=== PATIENT | female | born 1990 | race Caucasian/White ===

== ENCOUNTER 2017-09-18 17:03 | Emergency (ER) | payer SELFPAY ==
--- NOTE | 2017-09-18 17:31 | ER Document Report ---
ED General - General Chief Complaint: Toothache Stated Complaint: TOOTH PAIN Time Seen by Provider: 09/18/17 17:30 Mode of Arrival: Ambulatory Information source: Patient Notes: Patient is a 27 year old female who presents with right upper jaw pain associated with toothache. She states she has been to see dentist but they do not have an appointment until next week. Denies any fever, chills, facial swelling, difficulty breathing, difficulty swallowing. She has tried multiple [id number] pain medications with no relief. TRAVEL OUTSIDE OF THE [place] IN LAST 30 DAYS: No - Related Data Allergies/Adverse Reactions: No Known Allergies Allergy (Verified 09/18/17 17:03) Past Medical History - General Information source: Patient - Social History Smoking Status: Current Every Day Smoker Family History: Reviewed & Not Pertinent - Immunizations Hx Diphtheria, Pertussis, Tetanus Vaccination: Yes Review of Systems - Review of Systems Constitutional: See HPI EENT: See HPI Cardiovascular: No symptoms reported Respiratory: No symptoms reported Gastrointestinal: No symptoms reported Genitourinary: No symptoms reported Female Genitourinary: No symptoms reported Musculoskeletal: No symptoms reported Skin: No symptoms reported Hematologic/Lymphatic: No symptoms reported Neurological/Psychological: No symptoms reported Physical Exam - Vital signs Vitals: Temp Pulse Resp BP Pulse Ox 98.9 F 84 20 108/66 99 09/18/17 17:11 09/18/17 17:11 09/18/17 17:11 09/18/17 17:11 09/18/17 17:11 - Notes Notes: PHYSICAL EXAM: CONSTITUTIONAL: Alert and oriented, well-appearing and in no acute distress. Speaking in full sentences without difficulty. HENT: Normocephalic, atraumatic. Oropharynx clear without erythema, tonsilar exudate or malocclusion. Trachea midline. Uvula midline. Moist mucous membranes. Edentulous to #1 and 2, dental caries noted to tooth #3. No area of fluctuation, induration or point of access for dental abscess. EYES: Pupils equal round and reactive to light, EOM intact. Sclera anicteric, conjunctiva are normal. No entrapment. NECK: supple without lymphadenopathy. No midline tenderness or paraspinous muscle spasms. ROM intact. HEART: Regular rate and rhythm without murmurs. LUNGS: CTAB and equal. No wheezes, rales or rhonchi. EXTREMITIES: Normal range of motion, no pitting edema. No cyanosis. Cap Refill < 3 seconds. NEURO: Cranial nerves grossly intact. Normal sensory/motor exams. PSYCH: Normal mood, normal affect. SKIN: Warm and dry. Normal turgor. No rashes or lesions noted. Course - Re-evaluation Re-evalutation: 09/18/17 18:01 Patient seen and examined. Patient is able to speak in full sentences without difficulty, nontoxic in appearance. She is afebrile and not tachycardic. She has no evidence of facial cellulitis or dental abscess. Will treat with empiric antibiotics and pain medicine for dental caries. Advised to follow-up with dentist. At this time low suspicion for any emergent conditions at this time. At this time, will discharge with return precautions and follow-up recommendations. Verbal discharge instructions given at the bedside and opportunity for questions given. Medication warnings reviewed. Patient is in agreement with this plan and has verbalized understanding of return precautions and the need for primary care follow-up in the next 24-72 hours. - Vital Signs Vital signs: Temp Pulse Resp BP Pulse Ox 98.9 F 84 20 108/66 99 09/18/17 17:11 09/18/17 17:11 09/18/17 17:11 09/18/17 17:11 09/18/17 17:11 Discharge - Discharge Clinical Impression: Pain, dental Condition: Stable Disposition: HOME, SELF-CARE Additional Instructions: TOOTHACHE: Your pain is due to dental decay. The tooth must be repaired in order for you to feel better. You will, therefore, be referred to a dentist. We do not have dentists on the staff at [facility]. Severe swelling or drainage around a tooth usually means a dental abscess. This also requires evaluation and treatment by the dentist, but antibiotics may be prescribed while awaiting dental treatment. You should be rechecked immediately if you develop major swelling of the face, increasing pain, a lump in the jaw or gums, headache, difficulty swallowing, or fever. ORAL NARCOTIC MEDICATION: You have been given a prescription for pain control. This medication is a narcotic. It's best taken with food, as nausea can result if taken on an empty stomach. Don't operate machinery or drive within six hours of taking this medication. Do not combine this medicine with alcohol, or with any medication which can cause sedation (such as cold tablets or sleeping pills) unless you get permission from the physician. Narcotics tend to cause constipation. If possible, drink plenty of fluids and eat a diet high in fiber and fruits. Please be aware that prescription narcotics also have the potential for abuse. People become addicted to these medications because of the general sense of wellbeing that they induce. This feeling along with a significant reduction in tension, anxiety, and aggression provides a stimulating seductive quality to these drugs. Once your pain is under control, we encourage you to discard your unused narcotics. PENICILLIN V K: You have been given a prescription for Penicillin VK. Your physician has determined that this is the best antibiotic for your condition. Pen VK can be taken with meals, however more of the antibiotic gets into the bloodstream if it's taken on an empty stomach. Penicillin usually has no side effects. However, allergy to penicillins is common. If you have had an allergic reaction to any drug of the penicillin family, you should never take any other penicillin. Notify your doctor at once if you develop hives, itching, swelling, faintness, or shortness of breath. FOLLOW-UP CARE: You have been referred for follow-up care to the dentists listed below. Call the dentists office for an appointment as you were instructed or within the next two days. If you experience worsening or a significant change in your symptoms, notify the physician immediately or return to the Emergency Department at any time for re-evaluation. [facility] [address] [place], [place] Friday mornings, by appointment [facility] [address] [place] [address] [facility] [address] [facility]. [facility] [address] [facility]. [place] [address] [facility]. [email or web address] [address] [place] [address] Friday- 8:00am to 5:00 pm Will see patients from other [facility]. Charges based on income and family size and accepts Medicare, Medicaid, and Insurances Will pull molars [facility] [address] [address] Hours of Operation 8:00 am - 4:30 pm weekdays The following dental offices accept Medicaid: [facility] Dr. Moore Dr. Talley Dr. Delgadillo Dr. Clark Marco Anthony, Melissa, and Jennifer oral surgery Dr. Wynne ([place]) Dr. Payan ([place]) [facility] Drs. Mtz ([place]) Dr. Brown ([place]) [facility] Dr. Wilder ([place]) Drs. Rascon and ([place]) Medicaid Care Line Prescriptions: Hydrocodone/Acetaminophen [Vicodin 5-300 mg Tablet] 1 tab PO ASDIR PRN #15 tab PRN Reason: Penicillin V Potassium [Penicillin Vk 500 mg Tablet] 500 mg PO BID #20 tablet Forms: Return to Work
[2017-09-18] MEDS ORDERED: KETOROLAC TROMETHAMINE 60 MG/2 ML SDV IM ONE (17:59)
[2017-09-18] MEDS ORDERED: HYDROCODONE/ACETAMINOPHEN 5-325 MG TABLET PO ONE (18:43)
[2017-09-18 18:56] VITALS: BP 120/69
== END 2017-09-18 18:55 | disposition home or self-care (01) ==
LOC: ER 17:03 → EDBD 17:03 → ER 18:55
DX: K02.9 Dental caries, unspecified (principal); K08.89 Other specified disorders of teeth and supporting structures; F17.200 Nicotine dependence, unspecified, uncomplicated
CPT/HCPCS: 99282

== ENCOUNTER 2017-12-01 18:35 | Emergency (ER) | payer SELFPAY ==
[2017-12-01] MEDS ORDERED: ONDANSETRON 4 MG TAB.RAPDIS PO ONE (19:47)
[2017-12-01] MEDS ORDERED: ACETAMINOPHEN 325 MG TABLET PO ONE (19:47)
--- NOTE | 2017-12-01 19:49 | ER Document Report ---
ED Medical Screen (RME) - General Chief Complaint: Headache Stated Complaint: HEADACHE Time Seen by Provider: 12/01/17 19:46 Mode of Arrival: Ambulatory Information source: Patient Notes: Patient presents complaining of chest pain, headache, tingling in legs and feet , with nausea and blurred vision. Patient states headache pain is been off and on for the past 2 days. Patient describes chest discomfort as a dull ache. Patient denies any cough. Patient denies any recent immobilization or travel. hx: None I have greeted and performed a rapid initial assessment of this patient. A comprehensive ED assessment and evaluation of the patient, analysis of test results and completion of the medical decision making process will be conducted by additional ED providers. TRAVEL OUTSIDE OF THE [place] IN LAST 30 DAYS: No - Related Data Allergies/Adverse Reactions: No Known Allergies Allergy (Verified 12/01/17 18:36) Past Medical History - Social History Chew tobacco use (# tins/day): No Frequency of alcohol use: None Drug Abuse: None Renal/ Medical History: Denies: Hx Peritoneal Dialysis - Immunizations Hx Diphtheria, Pertussis, Tetanus Vaccination: Yes Physical Exam - Vital signs Vitals: Temp Pulse Resp BP Pulse Ox 99.1 F 84 16 106/62 98 12/01/17 18:39 12/01/17 18:39 12/01/17 18:39 12/01/17 18:39 12/01/17 18:39 - Respiratory Respiratory status: No respiratory distress Chest status: Tender Breath sounds: Normal. No: Rales, Rhonchi, Stridor, Wheezing Chest palpation: Tender Course - Vital Signs Vital signs: Temp Pulse Resp BP Pulse Ox 99.1 F 84 16 106/62 98 12/01/17 18:39 12/01/17 18:39 12/01/17 18:39 12/01/17 18:39 12/01/17 18:39
--- NOTE | 2017-12-01 20:17 | RADIOLOGY REPORT (SQ) ---
EXAM DESCRIPTION: CHEST PA/LAT COMPLETED DATE/TIME: 12/01/2017 8:09 pm REASON FOR STUDY: cp COMPARISON: None. EXAM PARAMETERS: NUMBER OF VIEWS: two views TECHNIQUE: Digital Frontal and Lateral radiographic views of the chest acquired. RADIATION DOSE: NA LIMITATIONS: none FINDINGS: LUNGS AND PLEURA: No opacities, masses or pneumothorax. No pleural effusion. MEDIASTINUM AND HILAR STRUCTURES: No masses or contour abnormalities. HEART AND VASCULAR STRUCTURES: Heart normal size. No evidence for failure. BONES: No acute findings. HARDWARE: None in the chest. OTHER: No other significant finding. IMPRESSION: NO SIGNIFICANT RADIOGRAPHIC FINDING IN THE CHEST. TECHNICAL DOCUMENTATION: JOB ID: [id number] [employer]- All Rights Reserved Reading location - IP/workstation name: [email or web address]
[2017-12-01 20:21] LABS: ABSOLUTE EOSINOPHILS # (AUTO) 0.2 10^3/uL (0.0-0.6); ABSOLUTE LYMPHOCYTES (AUTO) 2.9 10^3/uL (0.5-4.7); ABSOLUTE MONOCYTES (AUTO) 0.5 10^3/uL (0.1-1.4); ABSOLUTE NEUT (AUTO) 3.9 10^3/uL (1.7-8.2); BASOPHILS % (AUTO) 0.5 % (0-2); EOSINOPHILS % (AUTO) 3.2 % (0-6); HEMATOCRIT 38.5 % (36.0-47.0); HEMOGLOBIN 12.3 g/dL (12.0-15.5); LYMPHOCYTES % (AUTO) 37.7 % (13-45); MEAN CORPUSCULAR HEMOGLOBIN 25.2 pg (27.0-33.4); MEAN CORPUSCULAR HGB CONC 32.1 g/dL (32.0-36.0); MEAN CORPUSCULAR VOLUME 79 fl (80-97); MONOCYTES % (AUTO) 7.2 % (3-13); PLATELET COUNT 228 10^3/uL (150-450); RED BLOOD COUNT 4.89 10^6/uL (3.72-5.28); RED CELL DISTRIBUTION WIDTH 14.3 % (11.5-14.0); SEGMENTED NEUTROPHILS % (AUTO) 51.4 % (42-78); TOTAL CELLS COUNTED % (AUTO) 100 %; WHITE BLOOD COUNT 7.6 10^3/uL (4.0-10.5)
[2017-12-01] MEDS ORDERED: HALOPERIDOL LACTATE INJ 5 MG/1 ML VIAL IV ONE (20:26)
[2017-12-01] MEDS ORDERED: NORMAL SALINE 1000 ML 1,000 ML IV ONE (20:26)
[2017-12-01] MEDS ORDERED: KETOROLAC TROMETHAMINE INJ/PF 30 MG/1 ML SDV IV ONE (20:26)
--- NOTE | 2017-12-01 20:47 | ER Document Report ---
ED General - General Chief Complaint: Headache Stated Complaint: HEADACHE Time Seen by Provider: 12/01/17 19:46 Mode of Arrival: Ambulatory Notes: Patient is a 27-year-old female without past medical history who presents with multiple complaints including headache, body aches, fatigue, intermittent weakness and numbness, and exhaustion. The symptoms have been gradually worsening over the last several weeks. Nothing seems to improve or worsen her symptoms. Patient admits to a large amount of stress in her life due to her recent move, multiple children in the home, and working multiple jobs. She admits to sleeping only 3-4 hours nightly for at least the past 3-4 weeks. She has not seen her primary doctor regarding today's concerns. At time of my assessment she denies any focal weakness, numbness, fever, headache, or any other symptoms that are of concern to her. TRAVEL OUTSIDE OF THE [place] IN LAST 30 DAYS: No - Related Data Allergies/Adverse Reactions: No Known Allergies Allergy (Verified 12/01/17 18:36) Past Medical History - General Information source: Patient - Social History Smoking Status: Never Smoker Chew tobacco use (# tins/day): No Frequency of alcohol use: None Drug Abuse: None Lives with: Parents Family History: Reviewed & Not Pertinent Patient has suicidal ideation: No Patient has homicidal ideation: No Renal/ Medical History: Denies: Hx Peritoneal Dialysis - Immunizations Hx Diphtheria, Pertussis, Tetanus Vaccination: Yes Review of Systems - Review of Systems Notes: Constitutional: Positive fatigue HENT: Negative for sore throat. Eyes: Negative for visual changes. Cardiovascular: Negative for chest pain. Respiratory: Negative for shortness of breath. Gastrointestinal: Negative for abdominal pain, vomiting or diarrhea. Genitourinary: Negative for dysuria. Musculoskeletal: Negative for back pain. Skin: Negative for rash. Neurological: Positive for headache 10 point ROS negative except as marked above and in HPI. Physical Exam - Vital signs Vitals: Temp Pulse Resp BP Pulse Ox 99.1 F 84 16 106/62 98 12/01/17 18:39 12/01/17 18:39 12/01/17 18:39 12/01/17 18:39 12/01/17 18:39 Interpretation: Normal Notes: PHYSICAL EXAMINATION: GENERAL: Well-appearing, well-nourished and in no acute distress. HEAD: Atraumatic, normocephalic. EYES: Pupils equal round and reactive to light, extraocular movements intact, sclera anicteric, conjunctiva are normal. ENT: nares patent, oropharynx clear without exudates. Moist mucous membranes. NECK: Normal range of motion, supple without lymphadenopathy LUNGS: Breath sounds clear to auscultation bilaterally and equal. No wheezes rales or rhonchi. HEART: Regular rate and rhythm without murmurs ABDOMEN: Soft, nontender, normoactive bowel sounds. No guarding, no rebound. No masses appreciated. EXTREMITIES: Normal range of motion, no pitting or edema. No cyanosis. NEUROLOGICAL: No focal neurological deficits. Moves all extremities spontaneously and on command. PSYCH: Normal mood, normal affect. SKIN: Warm, Dry, normal turgor, no rashes or lesions noted. Course - Re-evaluation Re-evalutation: 12/01/17 20:46 Patient presents with multiple vague complaints that did not appear to be concerning for any acute life-threatening pathology. Vitals are within normal limits at triage and at time of discharge. Physical examination is unremarkable. Patient has tolerated oral intake without difficulty. Patient was not noted to be in distress at any point during their ER visit. At this time, based on the reassuring evaluation, I do not suspect an acute AK, pulmonary embolus, aortic dissection, acute intra-abdominal pathology, stroke, or sepsis.Will discharge with return precautions and follow-up recommendations. Vision seems to likely be under a large amount of emotional distress and significant life stressors. She admits that she is only sleeping 2-3 hours a night for at least the past 3-4 weeks, mother notes that she fell asleep on the phone earlier today. I provided the patient with a work note to take a mental health break for the next 1-2 days. Verbal discharge instructions given a the bedside and opportunity for questions given. Medication warnings reviewed. Patient is in agreement with this plan and has verbalized understanding of return precautions and the need for primary care follow-up in the next 24-72 hours. - Vital Signs Vital signs: Temp Pulse Resp BP Pulse Ox 98.8 F 66 18 116/63 100 12/01/17 21:02 12/01/17 21:02 12/01/17 21:02 12/01/17 21:02 12/01/17 21:02 - Laboratory Result Diagrams: 12/01/17 20:00 12/01/17 20:00 Laboratory results interpreted by me: 12/01/17 12/01/17 20:00 20:00 MCV 79 L MCH 25.2 L RDW 14.3 H Chloride 110 H Discharge - Discharge Clinical Impression: Stress, Physical exhaustion Headache Qualifiers: Headache type: unspecified Headache chronicity pattern: acute headache Intractability: not intractable Qualified Code(s): R51 - Headache Condition: Good Disposition: HOME, SELF-CARE Additional Instructions: Take the next 2 days off. Reduce any electronic stimulation, sleep as much as you can, keep yourself hydrated and eat good meals. Follow-up with general doctor. Please return to the emergency room immediately if you experience any concerning symptoms including high fevers, severe headache, chest pain, difficulty breathing, abdominal pain, slurred speech, numbness or weakness in your arms or legs, or any other symptom that concerns you. Forms: Return to Work
[2017-12-01 20:49] LABS: ALANINE AMINOTRANSFERASE 18 U/L (9-52); ALBUMIN 3.8 g/dL (3.5-5.0); ALKALINE PHOSPHATASE 60 U/L (38-126); ANION GAP 7 (5-19); ASPARTATE AMINO TRANSFERASE 15 U/L (14-36); BILIRUBIN,DIRECT 0.4 mg/dL (0.0-0.4); BILIRUBIN,TOTAL 0.4 mg/dL (0.2-1.3); BLOOD UREA NITROGEN 14 mg/dL (7-20); CALCIUM 9.4 mg/dL (8.4-10.2); CARBON DIOXIDE 26 mmol/L (22-30); CHLORIDE 110 mmol/L (98-107); GLUCOSE 83 mg/dL (75-110); POTASSIUM 4.1 mmol/L (3.6-5.0); SODIUM 142.8 mmol/L (137-145); TOTAL PROTEIN 6.7 g/dL (6.3-8.2)
[2017-12-01 21:03] VITALS: BP 116/63
--- NOTE | 2017-12-02 08:02 | EKG REPORT ---
SEVERITY:- NORMAL ECG - SINUS RHYTHM : Confirmed by: Alonzo Doyle MD 02-Dec-2017 08:01:22
== END 2017-12-01 21:04 | disposition home or self-care (01) ==
LOC: ER 18:35
DX: F43.9 Reaction to severe stress, unspecified (principal); R53.83 Other fatigue; R51 Headache; M79.1 Myalgia
CPT/HCPCS: 36415; 71046; 80053; 84703; 85025; 93005; 93010; 99285

== ENCOUNTER 2018-02-05 01:38 | Emergency (ER) | payer SELFPAY ==
[2018-02-05 02:20] LABS: APPEARANCE,URINE SLIGHTLY-CLOUDY; BILIRUBIN,URINE NEGATIVE (NEGATIVE); COLOR,URINE YELLOW; GLUCOSE, URINE NEGATIVE (NEGATIVE); KETONES,URINE TRACE mg/dL (NEGATIVE); LEUKOCYTE ESTERASE,URINE NEGATIVE (NEGATIVE); NITRITE,URINE NEGATIVE (NEGATIVE); PROTEIN,URINE NEGATIVE (NEGATIVE); URINE SPECIFIC GRAVITY 1.039
[2018-02-05 04:19] LABS: RBCS (WET MOUNT) NO RBCS SEEN; T.VAGINALIS (WET MOUNT) NO TRICHOMONAS SEEN; WBCS (WET MOUNT) RARE WBCS SEEN; YEAST (WET MOUNT) NO YEAST SEEN
[2018-02-05] MEDS ORDERED: AZITHROMYCIN 250 MG TABLET PO ONE (04:39)
[2018-02-05] MEDS ORDERED: DOXYCYCLINE HYCLATE 100 MG TABLET PO ONE (04:39)
[2018-02-05] MEDS ORDERED: LIDOCAINE 1% INJ-PF (10 MG/ML) 30 ML SDV INJ ONE (04:39)
[2018-02-05] MEDS ORDERED: CEFTRIAXONE INJ 250 MG VIAL IM ONE (04:39)
[2018-02-05] MEDS ORDERED: IBUPROFEN 800 MG TABLET PO ONE (04:42)
--- NOTE | 2018-02-05 04:42 | ER Document Report ---
ED General - General Chief Complaint: Pelvic Pain Stated Complaint: LOWER ABDOMINAL PAIN Time Seen by Provider: 02/05/18 03:42 Notes: Patient is a 27-year-old female presents emergency department the chief complaint of suprapubic/pelvic pain on and off for the past month. Patient states that she is concerned she has a sexually transmitted disease. Patient states that she was sexually active about a month ago with her last partner who was cheating on her. She admits to pain with intercourse at that time. She admits that her vaginal discharge has not been any different but she also has not been paying close attention. She denies any fevers or chills, pyuria, hematuria, any pain radiating into her back any nausea or vomiting or abdominal pain. Patient states that she has not been taking much uqda-rtf-swdebwr for her symptoms. She states that she does have an IUD in place otherwise healthy female States her last period was about 2 weeks ago TRAVEL OUTSIDE OF THE [place] IN LAST 30 DAYS: No - Related Data Allergies/Adverse Reactions: No Known Allergies Allergy (Verified 12/01/17 18:36) Past Medical History - Social History Smoking Status: Unknown if Ever Smoked Family History: Reviewed & Not Pertinent Patient has suicidal ideation: No Patient has homicidal ideation: No Renal/ Medical History: Denies: Hx Peritoneal Dialysis - Immunizations Hx Diphtheria, Pertussis, Tetanus Vaccination: Yes Review of Systems - Review of Systems Constitutional: No symptoms reported EENT: No symptoms reported Cardiovascular: No symptoms reported Respiratory: No symptoms reported Gastrointestinal: See HPI Genitourinary: See HPI Female Genitourinary: See HPI Musculoskeletal: No symptoms reported -: Yes All other systems reviewed and negative Physical Exam - Vital signs Vitals: Temp Pulse Resp BP Pulse Ox 98.7 F 76 18 114/59 L 99 02/05/18 02:03 02/05/18 02:03 02/05/18 02:03 02/05/18 02:03 02/05/18 02:03 - Notes Notes: PHYSICAL EXAM GENERAL: Alert, interacts well. HEAD: Normocephalic, atraumatic. EYES: Pupils equal, round, and reactive to light. Extraocular movements intact. ENT: Oral mucosa moist, tongue midline. NECK: Full range of motion. Supple. Trachea midline. LUNGS: Clear to auscultation bilaterally, no wheezes, rales, or rhonchi. No respiratory distress. HEART: Regular rate and rhythm. No murmurs, gallops, or rubs. ABDOMEN: Soft, nondistended, nontender. No guarding, rebound, or rigidity.. Bowel sounds present in all 4 quadrants. FEMALE : Normal external exam. No evidence of lesions, lacerations, bruising or vesicles. Speculum exam normal cervix closed. IUD strings intact with evidence of yellow vaginal discharge with out odor. No evidence of lesions. No vaginal bleeding. Bimanual exam normal no cervical motion tenderness. No adnexal mass or adnexal tenderness. EXTREMITIES: Moves all 4 extremities spontaneously. No edema, radial and dorsalis pedis pulses 2/4 bilaterally. No cyanosis. NEUROLOGICAL: Alert and oriented x4. Normal speech. PSYCH: Normal affect, normal mood. SKIN: Warm, dry, normal turgor. No rashes or lesions noted. Course - Re-evaluation Re-evalutation: 02/05/18 04:38 Patient is a 27-year-old female hemodynamic stable, no acute distress afebrile. Vital signs stable without evidence of tachycardia, hypotension. Presentation of mild pelvic pain. Vitals are normal at the time of arrival. Laboratories are unremarkable without evidence of cystitis,. Patient is overall very well in appearance. Based on clinical history and examination I do not suspect an acute appendicitis, tubo-ovarian abscess, related pathology, pelvic inflammatory disease, mesenteric ischemia, or pyelonephritis. Pelvic exam without cervical motion tenderness or focal adnexal tenderness. Will discharge home with return precautions and followup recommendations. - Vital Signs Vital signs: Temp Pulse Resp BP Pulse Ox 98.3 F 73 20 120/62 99 02/05/18 05:05 02/05/18 05:05 02/05/18 05:05 02/05/18 05:05 02/05/18 05:05 - Laboratory Laboratory results interpreted by me: 02/05/18 02:00 Urine Ketones TRACE H Urine Urobilinogen 4.0 H Urine Ascorbic Acid 40 H Discharge - Discharge Clinical Impression: PID (acute pelvic inflammatory disease) Condition: Good Disposition: HOME, SELF-CARE Instructions: Pelvic Inflammatory Disease ([facility]) Additional Instructions: We will call you if your Chlamydia/gonorrhea screen is positive. If you do not hear from us then it was negative. Please take your antibiotics as directed and complete the entire course. If your symptoms not improve in the next 3 days follow-up with the health department or [facility]. Prescriptions: Doxycycline Hyclate 100 mg PO BID #14 capsule Referrals: NIURKA MALONEY MD [Primary Care Provider] - Follow up in [address] [facility] [Provider Group] - Follow up in 3-5 days
[2018-02-05 05:06] VITALS: BP 120/62
[2018-02-05 05:45] LABS: CHLAM PCR NOT DETECTED (NOT DETECT); GON PCR NOT DETECTED (NOT DETECT)
== END 2018-02-05 05:00 | disposition home or self-care (01) ==
LOC: ER 01:38
DX: N73.9 Female pelvic inflammatory disease, unspecified (principal); R10.2 Pelvic and perineal pain; Z20.2 Contact with and (suspected) exposure to infections with a predominantly sexual mode of transmission
CPT/HCPCS: 99284; 96372; 87210; 81025; 81001; 87491; 87591; J3490; J0696

== ENCOUNTER 2018-02-26 21:54 | Emergency (ER) | payer MEDICAID ==
[2018-02-26 22:29] VITALS: BP 116/65
[2018-02-26] MEDS ORDERED: KETOROLAC TROMETHAMINE 60 MG/2 ML SDV IM ONE (22:56)
--- NOTE | 2018-02-26 23:02 | ER Document Report ---
ED General - General Chief Complaint: Toothache Stated Complaint: TOOTHACHE Time Seen by Provider: 02/26/18 22:50 Mode of Arrival: Ambulatory Information source: Patient Notes: 27-year-old female presents emergency department for evaluation of toothache to left upper jaw. Patient reports that the pain started today. She denies any gum or tongue swelling. She denies any difficulty swallowing. She denies any injury or trauma. She also denied any fever, rash, chest pain, shortness of breath, abdominal pain, nausea, vomiting, diarrhea, dysuria, or hematuria. TRAVEL OUTSIDE OF THE [place] IN LAST 30 DAYS: No - Related Data Allergies/Adverse Reactions: No Known Allergies Allergy (Verified 12/01/17 18:36) Past Medical History - General Information source: Patient - Social History Smoking Status: Current Every Day Smoker Family History: Reviewed & Not Pertinent Renal/ Medical History: Denies: Hx Peritoneal Dialysis - Immunizations Hx Diphtheria, Pertussis, Tetanus Vaccination: Yes Review of Systems - Review of Systems -: Yes All other systems reviewed and negative Physical Exam - Vital signs Vitals: Temp Pulse Resp BP Pulse Ox 97.7 F 84 16 116/65 99 02/26/18 22:13 02/26/18 22:13 02/26/18 22:13 02/26/18 22:13 02/26/18 22:13 - Notes Notes: PHYSICAL EXAMINATION: GENERAL: Well-appearing, well-nourished and in no acute distress. HEAD: Atraumatic, normocephalic. ENT: Nares patent, oropharynx clear without exudates. Moist mucous membranes. Poor residential with multiple dental caries. No facial swelling or erythema. No gum or tongue swelling. No abscess NECK: Normal range of motion, supple without lymphadenopathy NEUROLOGICAL: Normal gait, balance, speech, and facial symmetry. PSYCH: Normal mood, normal affect. SKIN: Warm, Dry, normal turgor, no rashes or lesions noted. Course - Re-evaluation Re-evalutation: 02/26/18 23:10 Patient presented to the emergency department for evaluation of toothache. Patient was nontoxic or septic appearing in no acute or respiratory distress. Patient was afebrile and not toxic. Consistent with antalgia. No evidence of abscess or facial cellulitis. The likelihood of other entities in the differential is insufficient to justify any further testing for them. Discussed care plan at length with patient. Any and all questions were answered. Patient was given Toradol felt a little better. Discharged home with Motrin and Penicillin VK. Also sent home with patient a dental list for her to make a future appointment. I advised patient to follow-up with dental and take medications as instructed. I also advised her to return immediately to the emergency department for any new, worsening, or concerning symptoms as discussed. She understands and agrees with plan. - Vital Signs Vital signs: Temp Pulse Resp BP Pulse Ox 97.7 F 84 16 116/65 99 02/26/18 22:13 02/26/18 22:13 02/26/18 22:13 02/26/18 22:13 02/26/18 22:13 Discharge - Discharge Clinical Impression: Pain, dental Condition: Good Instructions: Penicillin V K ([facility]), Toothache ([facility]) Additional Instructions: Follow-up with dental and take medications as instructed. Return immediately to the emergency department for any new, worsening, or concerning symptoms as discussed. Prescriptions: Ibuprofen [Motrin 600 Mg Tablet] 600 mg PO TID #15 tablet Penicillin V Potassium [Penicillin Vk 500 mg Tablet] 500 mg PO BID #20 tablet Referrals: NIURKA MALONEY MD [Primary Care Provider] - Follow up as needed
== END 2018-02-26 23:12 | disposition home or self-care (01) ==
LOC: ER 21:54
DX: K02.9 Dental caries, unspecified (principal); K08.89 Other specified disorders of teeth and supporting structures; F17.200 Nicotine dependence, unspecified, uncomplicated
CPT/HCPCS: 99282; 96372; J1885

== ENCOUNTER 2018-07-06 12:33 | Emergency (ER) | payer SELFPAY ==
[2018-07-06 12:44] VITALS: BP 99/61
[2018-07-06] MEDS ORDERED: METOCLOPRAMIDE HCL INJ/PF 10 MG/2 ML SDV IV ONE (12:53)
[2018-07-06] MEDS ORDERED: DIPHENHYDRAMINE HCL 50 MG/ML VIAL IV ONE (12:53)
[2018-07-06] MEDS ORDERED: NORMAL SALINE 1000 ML 1,000 ML IV ONE (12:53)
--- NOTE | 2018-07-06 12:55 | ER Document Report ---
ED Medical Screen (RME) - General Chief Complaint: Headache Stated Complaint: HEADACHE, HANDS/FEET PAIN Time Seen by Provider: 07/06/18 12:48 Mode of Arrival: Ambulatory Information source: Patient, [facility] Records Notes: 28-year-old female with no reported past medical history presents with complaint of headache, myalgias, blurred vision. Patient has had 1 day of headache with associated nausea. Patient does have a history of migraine headaches but states this feels different. She is not sure if it was caused by cleaning out her home which is full of mold. I have greeted and performed a rapid initial assessment of this patient. A comprehensive ED assessment and evaluation of the patient, analysis of test results and completion of medical decision making process we will be contacted by additional ED providers. PHYSICAL EXAMINATION: Vital signs reviewed GENERAL: Well-appearing, well-nourished and in no acute distress. LUNGS: No respiratory distress Musculoskeletal: Normal range of motion NEUROLOGICAL: Normal speech, normal gait. PSYCH: Normal mood, normal affect. SKIN: Warm, Dry, normal turgor, no rashes or lesions noted. TRAVEL OUTSIDE OF THE [place] IN LAST 30 DAYS: No - Related Data Allergies/Adverse Reactions: No Known Allergies Allergy (Verified 07/06/18 12:34) Past Medical History - Social History Chew tobacco use (# tins/day): No Frequency of alcohol use: None Drug Abuse: None Renal/ Medical History: Denies: Hx Peritoneal Dialysis - Immunizations Hx Diphtheria, Pertussis, Tetanus Vaccination: Yes Physical Exam - Vital signs Vitals: Temp Pulse Resp BP Pulse Ox 97.9 F 72 16 99/61 L 100 07/06/18 12:41 07/06/18 12:41 07/06/18 12:41 07/06/18 12:41 07/06/18 12:41 Course - Vital Signs Vital signs: Temp Pulse Resp BP Pulse Ox 97.9 F 72 16 99/61 L 100 07/06/18 12:41 07/06/18 12:41 07/06/18 12:41 07/06/18 12:41 07/06/18 12:41 Doctor's Discharge - Discharge Referrals: NIURKA MALONEY MD [Primary Care Provider] - Follow up as needed
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
[2018-07-06] MEDS ORDERED: DIPHENHYDRAMINE HCL 25 MG CAPSULE PO ONE (15:57)
[2018-07-06] MEDS ORDERED: METOCLOPRAMIDE HCL 10 MG TABLET PO ONE (15:58)
[2018-07-06] MEDS ORDERED: KETOROLAC TROMETHAMINE 10 MG TABLET PO ONE (15:59)
[2018-07-06 16:04] LABS: APPEARANCE,URINE SLIGHTLY-CLOUDY; BILIRUBIN,URINE NEGATIVE (NEGATIVE); COLOR,URINE YELLOW; GLUCOSE, URINE NEGATIVE (NEGATIVE); KETONES,URINE NEGATIVE (NEGATIVE); LEUKOCYTE ESTERASE,URINE TRACE (NEGATIVE); NITRITE,URINE NEGATIVE (NEGATIVE); PROTEIN,URINE NEGATIVE (NEGATIVE); URINE SPECIFIC GRAVITY 1.019; UROBILINOGEN,URINE NEGATIVE mg/dL (<2.0)
== END 2018-07-06 16:10 | disposition home or self-care (01) ==
LOC: ER 12:33
DX: R51 Headache (principal); Z86.69 Personal history of other diseases of the nervous system and sense organs; Z97.5 Presence of (intrauterine) contraceptive device
CPT/HCPCS: 99284; 81025; 81001; J3490; J2765

== ENCOUNTER 2018-07-12 17:52 | Emergency (ER) | payer SELFPAY ==
--- NOTE | 2018-07-12 18:29 | ER Document Report ---
ED General - General Chief Complaint: Allergic Reaction Stated Complaint: POSSIBLE ALLERGIC REACTION Time Seen by Provider: 07/12/18 18:27 Notes: Patient is a 28-year-old female without chronic medical problems who presents after being stung by a wasp just prior to arrival. 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 She did not have an EpiPen available to her, did contact EMS who administered 0.3 mg of intramuscular epinephrine and Benadryl. She states initially she had throat tightness, chest tightness, shortness of breath and diffuse hives and itching all of which have now resolved after receiving these medications. She states this feels identical to when she has had severe allergic reactions in the past. She has not contacted her general doctor regarding today's concerns. She currently denies any symptoms of any kind. TRAVEL OUTSIDE OF THE [place] IN LAST 30 DAYS: No - Related Data Allergies/Adverse Reactions: No Known Allergies Allergy (Verified 07/06/18 12:34) Past Medical History - General Information source: Patient - Social History Smoking Status: Never Smoker Frequency of alcohol use: None Drug Abuse: None Lives with: Family Family History: Reviewed & Not Pertinent Patient has suicidal ideation: No Patient has homicidal ideation: No Renal/ Medical History: Denies: Hx Peritoneal Dialysis - Immunizations Hx Diphtheria, Pertussis, Tetanus Vaccination: Yes Review of Systems - Review of Systems Notes: Constitutional: Negative for fever. HENT: Negative for sore throat. Eyes: Negative for visual changes. Cardiovascular: Negative for chest pain. Respiratory: Negative for shortness of breath. Gastrointestinal: Negative for abdominal pain, vomiting or diarrhea. Genitourinary: Negative for dysuria. Musculoskeletal: Negative for back pain. Skin: Negative for rash. Neurological: Negative for headaches, weakness or numbness. 10 point ROS negative except as marked above and in HPI. Physical Exam - Vital signs Vitals: Resp Pulse Ox 15 99 07/12/18 17:58 07/12/18 17:58 Interpretation: Normal Notes: PHYSICAL EXAMINATION: GENERAL: Well-appearing, well-nourished and in no acute distress. HEAD: Atraumatic, normocephalic. EYES: Pupils equal round and reactive to light, extraocular movements intact, sclera anicteric, conjunctiva are normal. ENT: nares patent, oropharynx clear without exudates. Moist mucous membranes. NECK: Normal range of motion, supple without lymphadenopathy LUNGS: Breath sounds clear to auscultation bilaterally and equal. No wheezes rales or rhonchi. HEART: Regular rate and rhythm without murmurs ABDOMEN: Soft, nontender, normoactive bowel sounds. No guarding, no rebound. No masses appreciated. EXTREMITIES: Normal range of motion, no pitting or edema. No cyanosis. NEUROLOGICAL: No focal neurological deficits. Moves all extremities spontaneously and on command. PSYCH: Normal mood, normal affect. SKIN: Warm, Dry, normal turgor, no rashes or lesions noted. Course - Re-evaluation Re-evalutation: 07/12/18 18:27 Patient presents with symptoms consistent with an allergic reaction with possible associated anaphylaxis prior to the hospital which has now resolved after receiving intramuscular epinephrine by EMS. Patient has no ongoing symptoms at the time of my assessment. She will be monitored for at least 1 hour prior to discharge to ensure that there is no rebound anaphylaxis. Will recommend ongoing antihistamine therapy as an outpatient. A prescription for epinephrine has been provided. At this time will discharge with return precautions and follow-up recommendations. Verbal discharge instructions given a the bedside and opportunity for questions given. Medication warnings reviewed. Patient is in agreement with this plan and has verbalized understanding of return precautions and the need for primary care follow-up in the next 24-72 hours. - Vital Signs Vital signs: Temp Pulse Resp BP Pulse Ox 98 F 15 102/66 97 07/12/18 18:02 07/12/18 20:01 07/12/18 20:01 07/12/18 20:01 Discharge - Discharge Clinical Impression: Wasp sting-induced anaphylaxis Qualifiers: Encounter type: initial encounter Injury intent: accidental or unintentional Qualified Code(s): T63.461A - Toxic effect of venom of wasps, accidental ( unintentional), initial encounter Anaphylaxis Qualifiers: Encounter type: initial encounter Qualified Code(s): T78.2XXA - Anaphylactic shock, unspecified, initial encounter Condition: Good Disposition: HOME, SELF-CARE Additional Instructions: IF YOU DEVELOP DIFFICULTY BREATHING, RETURN OF HIVES, VOMITING, LIGHTHEADEDNESS , GIVE YOURSELF THE EPINEPHRINE SHOT IMMEDIATELY AND CALL 911. NEVER HESITATE TO GIVE YOURSELF THE EPINEPHRINE THIS CAN SAVE YOUR LIFE IF YOU ARE HAVE A SERIOUS ALLERGIC REACTION. Please also follow-up with your primary care doctor for consideration of allergy testing. Prescriptions: Epinephrine [Epipen 2-Drake] 0.3 mg IM ONCE PRN #1 packet PRN Reason:
[2018-07-12 20:06] VITALS: BP 102/66
== END 2018-07-12 20:06 | disposition home or self-care (01) ==
LOC: ER 17:52
DX: T78.2XXA Anaphylactic shock, unspecified, initial encounter (principal); T63.461A Toxic effect of venom of wasps, accidental (unintentional), initial encounter; X58.XXXA Exposure to other specified factors, initial encounter
CPT/HCPCS: 99283

== ENCOUNTER 2018-11-07 10:08 | Emergency (ER) | payer SELFPAY ==
[2018-11-07] MEDS ORDERED: HYDROXYZINE PAMOATE 25 MG CAPSULE PO ONE (10:29)
[2018-11-07] MEDS ORDERED: IPRATROPIUM/ALBUTEROL 0.5-2.5 MG/3 ML AMPUL NEB ONE ×2 (10:29→12:07)
[2018-11-07] MEDS ORDERED: LIDOCAINE 1% INJ-PF (10 MG/ML) 30 ML SDV NEB ONE (10:29)
--- NOTE | 2018-11-07 10:30 | ER Document Report ---
ED Medical Screen (RME) - General Chief Complaint: Breathing Difficulty Stated Complaint: DIFFICULTY BREATHING Time Seen by Provider: 11/07/18 10:27 TRAVEL OUTSIDE OF THE [place] IN LAST 30 DAYS: No - HPI Notes: 11/07/18 10:30 And helpful a little fish cleaner mixed with bleach no having coughing complaining of multiple other symptoms spinning headache chest pain back pain. Patient is on her phone and RME in no obvious distress patient does have a raspy cough - Related Data Allergies/Adverse Reactions: No Known Allergies Allergy (Verified 11/07/18 10:10) Past Medical History Renal/ Medical History: Denies: Hx Peritoneal Dialysis - Immunizations Hx Diphtheria, Pertussis, Tetanus Vaccination: Yes Review of Systems - Review of Systems Respiratory: Cough -: Yes All other systems reviewed and negative Physical Exam - Vital signs Vitals: Temp Pulse Resp BP Pulse Ox 98.7 F 80 22 H 119/82 98 11/07/18 10:12 11/07/18 10:12 11/07/18 10:12 11/07/18 10:12 11/07/18 10:12 - Respiratory Breath sounds: Rhonchi, Wheezing Course - Vital Signs Vital signs: Temp Pulse Resp BP Pulse Ox 98.7 F 80 22 H 119/82 98 11/07/18 10:12 11/07/18 10:12 11/07/18 10:12 11/07/18 10:12 11/07/18 10:12
--- NOTE | 2018-11-07 11:34 | RADIOLOGY REPORT (SQ) ---
EXAM DESCRIPTION: CHEST 2 VIEWS COMPLETED DATE/TIME: 11/07/2018 11:25 am REASON FOR STUDY: sob COMPARISON: 12/01/2017 EXAM PARAMETERS: NUMBER OF VIEWS: two views TECHNIQUE: Digital Frontal and Lateral radiographic views of the chest acquired. RADIATION DOSE: NA LIMITATIONS: none FINDINGS: LUNGS AND PLEURA: No opacities, masses or pneumothorax. No pleural effusion. MEDIASTINUM AND HILAR STRUCTURES: No masses or contour abnormalities. HEART AND VASCULAR STRUCTURES: Heart normal size. No evidence for failure. BONES: No acute findings. HARDWARE: None in the chest. OTHER: No other significant finding. IMPRESSION: NO ACUTE RADIOGRAPHIC FINDING IN THE CHEST. TECHNICAL DOCUMENTATION: JOB ID: [id number] [employer]- All Rights Reserved Reading location - IP/workstation name: [email or web address]
[2018-11-07] MEDS ORDERED: PREDNISONE 20 MG TABLET PO ONE (12:03)
--- NOTE | 2018-11-07 12:14 | ER Document Report ---
ED Respiratory Problem - General Chief Complaint: Breathing Difficulty Stated Complaint: DIFFICULTY BREATHING Time Seen by Provider: 11/07/18 10:27 Notes: Patient mixed the cleanser with some ammonia this morning and it immediately caused the mixture to spray into the air and patient inhaled it and developed a significant cough and congestion and feeling like she cannot get her breath. Also felt as if her chest was tight, felt dizzy and also had a headache. [place] she had some tingling all over. She came here and in the triage area she received a nebulizer of DuoNeb, ipratropium and albuterol, mix with Xylocaine. She was also given some Vistaril p.o. Patient says she is feeling somewhat better now although she still has periodic deep coughing. History of asthma. Has been well recently. Non-smoker. TRAVEL OUTSIDE OF THE [place] IN LAST 30 DAYS: No - Related Data Allergies/Adverse Reactions: No Known Allergies Allergy (Verified 11/07/18 10:10) Past Medical History - Social History Smoking Status: Never Smoker Chew tobacco use (# tins/day): No Frequency of alcohol use: None Drug Abuse: None Family History: Reviewed & Not Pertinent Patient has suicidal ideation: No Patient has homicidal ideation: No - Immunizations Hx Diphtheria, Pertussis, Tetanus Vaccination: Yes Review of Systems - Review of Systems Notes: REVIEW OF SYSTEMS: CONSTITUTIONAL : Denies fever. Vital signs are all normal. EENT: Denies eye, ear, nose or mouth or throat pain or other symptoms. CARDIOVASCULAR: Denies chest pain. RESPIRATORY: Occasional prolonged cough. Has not seen any blood. GASTROINTESTINAL: Denies abdominal pain or nausea, vomiting, or diarrhea. GENITOURINARY: Denies difficulty or painful urinating, urinary frequency, blood in urine. MUSCULOSKELETAL: Denies back or neck pain. Denies joint pain or swelling. SKIN: Denies rash or skin lesions. NEUROLOGICAL: [place] dizzy. No loss of consciousness. Denies LOC or altered mental status. Denies headache. Denies sensory loss or motor deficits. ALL OTHER SYSTEMS REVIEWED AND NEGATIVE. Physical Exam - Vital signs Vitals: Temp Pulse Resp BP Pulse Ox 98.7 F 80 22 H 119/82 98 11/07/18 10:12 11/07/18 10:12 11/07/18 10:12 11/07/18 10:12 11/07/18 10:12 Interpretation: Normal Notes: PHYSICAL EXAMINATION: GENERAL: Well-appearing, in no acute distress. Occasional prolonged cough. Has not seen any blood. HEAD: Atraumatic, normocephalic. EYES: Pupils equal round and reactive to light, extraocular movements intact. ENT: oropharynx clear without exudates. Clear airway to my exam. Moist mucous membranes. Voice sounds normal to me. NECK: Normal range of motion, supple. LUNGS: Breath sounds clear and equal bilaterally. A few scattered wheezes remain after the patient had one nebulizer. HEART: Regular rate and rhythm without murmurs. ABDOMEN: Soft, nontender. No guarding or rebound. No masses. BACK: No tenderness throughout entire back. EXTREMITIES: Normal range of motion without pain. NEUROLOGICAL: Normal speech, normal gait. Normal sensory, motor, and reflex exams. Awake, alert, and oriented x3. Cranial nerves normal. PSYCH: Normal mood, normal affect. SKIN: Warm, dry, no rashes. Course - Re-evaluation Re-evalutation: 11/07/18 12:14 Patient was given 2 nebs on breathing fairly well at discharge. Talking on the phone for long periods without any apparent distress. - Vital Signs Vital signs: Temp Pulse Resp BP Pulse Ox 98.7 F 80 22 H 119/82 98 11/07/18 10:12 11/07/18 10:12 11/07/18 10:12 11/07/18 10:12 11/07/18 10:12 - Diagnostic Test Radiology results interpreted by vt: 11/07/18 12:15 Chest x-ray is normal. - EKG Interpretation by Sc EKG shows normal: Sinus rhythm Rate: Normal Rhythm: NSR Additional EKG results interpreted by vt: 11/07/18 12:16 EKG is normal. Discharge - Discharge Clinical Impression: Inhalation of cleanser, Bronchospasm Condition: Stable Disposition: HOME, SELF-CARE Additional Instructions: BRONCHOSPASM: You have what we call bronchospasm or wheezing from the inhalation of the cleanser today. The symptoms usually last for a day or 2 and then resolved. You have tightness in the bronchial tubes, called bronchospasm. This often occurs with bronchial infections. Allergies, inhaled chemicals, and polluted or cold air can also provoke bronchospasm. It's more likely in patients with asthma in the family. Emergency treatment of bronchospasm may include adrenaline shots or bronchodilator aerosol. You may feel lightheaded and have a rapid pulse for an hour or two. Rest and get plenty of fluids. At home, we'll treat you with a bronchodilator inhaler. Antibiotics and corticosteroids may be required for some patients. Until you recover, avoid chemical fumes, dusts, pollens, and exercising in very cold or dry air. If you smoke, stop now!! If you develop a fever, increased wheezing, chest pain, or severe shortness of breath, you should contact the doctor immediately. COUGH-SUPPRESSANT & EXPECTORANT MEDICATION: You are to use a cough medication as needed for relief of symptoms. This medicine is a combination of an expectorant (to make the mucous thinner and more easily "coughed up") and a cough suppressant (to reduce the frequency of coughing). The cough-suppressant medicine is related to narcotics. You may experience mild nausea and sleepiness. Some patients who are very sensitive to narcotics may have stomach pain from this medicine. Taking the medicine with food reduces these side effects. Do not drive or work with machinery until you know how this medicine affects you. The expectorant should have no side effects. Iodine-containing expectorants (such as organidin) should not be taken by persons with active thyroid disease unless approved by your doctor. Call the doctor if you develop shortness of breath, hives, rash, itching, lightheadedness, or severe nausea and vomiting. Oral Narcotic Medication--you have been given hydrocodone, which is a pain pill, but it is the best cough suppressant available. You have been given a prescription for pain control. This medication is a narcotic. It's best taken with food, as nausea can result if taken on an empty stomach. Don't operate machinery or drive within six hours of taking this medication. Do not combine this medicine with alcohol, or with any medication which can cause sedation (such as cold tablets or sleeping pills) unless you get permission from the physician. Narcotics tend to cause constipation. If possible, drink plenty of fluids and eat a diet high in fiber and fruits. INHALED BRONCHODILATORS: You have received a treatment of and/or prescription for an inhaled bronchodilator -- a medication which stimulates the airways in the lung to dilate. This improves the flow of air in asthma, bronchitis, and emphysema. These medicines have some similarity to adrenaline, and can cause similar side effects: shakiness, racing heart, and a sense of nervousness. These side effects decrease with time. Contact your doctor if these side effects are severe. Do not over-use the medicine. Too-frequent use of the inhaler may make it ineffective. Call your doctor if the inhaler is not controlling your symptoms at the prescribed doses. STEROID MEDICATION: You have been given an injection of or oral medicine of the cortisone/steroid class. This medication is used to control inflammation or allergy. Mauri t is usually only given for a short period of time, until the acute process subsides. There are usually no side effects from short-term use of cortisone-like medications. Some persons feel an increased sense of well-being and are not sleepy at bedtime. Long-term use of cortisone medications is best avoided, unless required for a severe condition. If your condition does not remit, or relapses after the course of corticosteroid medication, you should consult your physician. FOLLOW-UP CARE: If you have been referred to a physician for follow-up care, call the physicians office for an appointment as you were instructed or within the next two days. If you experience worsening or a significant change in your symptoms, notify the physician immediately or return to the Emergency Department at any time for re-evaluation. Prescriptions: Hydrocodone/Acetaminophen [[place] 5-325 mg Tablet] 1 tab PO Q4HP PRN #10 tablet PRN Reason: Forms: Return to Work
[2018-11-07 12:37] VITALS: BP 103/77
--- NOTE | 2018-11-07 17:13 | EKG REPORT ---
SEVERITY:- NORMAL ECG - SINUS RHYTHM : Confirmed by: Alonzo Doyle MD 07-Nov-2018 17:13:07
== END 2018-11-07 12:37 | disposition home or self-care (01) ==
LOC: ER 10:08
DX: J68.8 Other respiratory conditions due to chemicals, gases, fumes and vapors (principal); R05 Cough; R07.89 Other chest pain; R42 Dizziness and giddiness; R51 Headache; R20.2 Paresthesia of skin; J45.909 Unspecified asthma, uncomplicated
CPT/HCPCS: 93005; 94640 ×2; 99283; 71046; 93010; J3490; J7512; J7620